=== PATIENT | female | born 1995 | race Caucasian/White ===

== ENCOUNTER 2019-09-21 16:00 | Emergency (ER) | payer SELFPAY ==
[~2019-09-21] VITALS: Ht 157.5 cm; Wt 69.4 kg
[2019-09-21 16:21] VITALS: Ht 157.5 cm; Wt 69.4 kg
[2019-09-21 21:43] VITALS: BP 108/67
== END 2019-09-21 21:43 | disposition home or self-care (01) ==
LOC: ED 16:00
DX: J06.9 Acute upper respiratory infection, unspecified (principal); J31.0 Chronic rhinitis; S00.83XA Contusion of other part of head, initial encounter; W54.1XXA Struck by dog, initial encounter; Y93.89 Activity, other specified; Y92.89 Other specified places as the place of occurrence of the external cause; Y99.8 Other external cause status
CPT/HCPCS: 36415